=== PATIENT | female | born 1995 | race Caucasian/White ===

== ENCOUNTER 2020-03-04 08:58 | Emergency (ER) | payer OTHER, MEDICAID, SELFPAY ==
--- NOTE | 2020-03-04 09:04 | ED.URI ---
HPI - URI/Sore Throat General Chief Complaint: Upper Respiratory Infection Stated Complaint: cough sob achy Time Seen by Provider: 03/04/20 09:13 Source: patient and RN notes reviewed Mode of arrival: ambulatory Limitations: no limitations History of Present Illness HPI Narrative: 25-year-old female presents with concern for cough. Reports a history of asthma, reports cough has been worsening over the last 2 days. Reports that she is used her controller medicine daily, and has used her albuterol rescue inhaler 3 times today. She reports body aches, fatigue. Denies fever. Denies taking any other vmjq-ive-lhoijsy medications. 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 Reports she has a nebulizer, has not used it. MD elicited complaint: cough Related Data Home Medications Medication Instructions Recorded Confirmed albuterol sulfate [ProAir HFA] 2 puff INHALATION QID PRN 03/04/20 03/04/20 budesonide-formoterol [Symbicort] 2 puff INHALATION Q12H 03/04/20 03/04/20 Allergies Allergy/AdvReac Type Severity Reaction Status Date / Time No Known Allergies Allergy Verified 03/04/20 09:19 Review of Systems Review of Systems: Narrative: CONSTITUTIONAL: Reports malaise. Denies chills, sweats, or fever. EYES: Denies visual changes, redness, or discharge. ENT: Reports rhinorrhea, congestion. Denies sinus pain, otalgia and sore throat. CARDIOVASCULAR: Denies chest pain, palpitations, or edema. RESPIRATORY: Reports cough, dyspnea. GASTROINTESTINAL: Denies abdominal pain, nausea, vomiting, diarrhea SKIN: Denies rash or itching. MUSCULOSKELETAL: Reports myalgia. NEUROLOGIC: Denies headache. All systems reviewed & are unremarkable except as noted in HPI and below PMFSH Family History Family History (Updated 04/17/14 @ 07:13 by DOCTOR UNKNOWN) Father Family history of hepatitis Mother Family history of hepatitis Social History Social History Alcohol intake: never Comments At time of signature, agree with nursing past medical, surgical, social and family history. There is no relevant family history pertinent to the presenting complaint Exam Narrative: Exam Narrative: GENERAL: Well-appearing, well-nourished, and in no acute distress. HEAD: Normocephalic EYES: PERRLA, conjunctivae clear ENT: Nares clear, turbinates edematous and erythematous, clear discharge. Mucous membranes moist. TM pearly rosas with dull light reflex bilaterally; no tragal tenderness. Oropharynx not erythematous without lesions. Tonsils not enlarged and without exudate, no drooling, no hoarseness, no trismus, uvula midline. NECK: Supple. No lymphadenopathy CHEST: Clear to auscultation, breath sounds equal.. Scattered inspiratory wheeze, no rhonchi, rales, or stridor. No respiratory distress, speaks in full sentences. HEART: Regular rate and rhythm. No murmur heard. SKIN: Warm, dry, no rash. NEURO: Alert and oriented x3. PSYCH: Normal mood and affect Course Course Emergency Course: Patient is aware of diagnosis, understands and agrees to treatment plan. Anticipatory guidance given. Patient agrees to follow-up as directed and is aware of reasons to seek care at the emergency department. Portions of this record may have been created with voice recognition software Vital Signs Vital signs: Vital Signs Temperature 98.8 F 03/04/20 09:07 Pulse Rate 87 03/04/20 09:07 Respiratory Rate 16 03/04/20 09:07 Blood Pressure 129/91 H 03/04/20 09:07 Pulse Oximetry 100 03/04/20 09:07 Temperature 98.8 F 03/04/20 09:07 Pulse Rate 87 03/04/20 09:07 Respiratory Rate 16 03/04/20 09:07 Blood Pressure 129/91 H 03/04/20 09:07 Pulse Oximetry 100 03/04/20 09:07 Reviewed. Patient has been instructed to follow up with her primary care provider within the next week regarding her elevated blood pressure today. MDM - URI/Sore Throat MDM Narrative Medical decision making narrative: Differential diagnosis considered: Strep pharyng
[2020-03-04 09:07] VITALS: BP 129/91; PULSE 87; RESP 16; TEMP 37.1; O2SAT 100
== END 2020-03-04 09:30 | disposition home or self-care (01) ==
PROVIDERS: Emergency Provider Nurse Practitioner
DX: J45.41 Moderate persistent asthma with (acute) exacerbation (principal); Z20.828 Contact with and (suspected) exposure to other viral communicable diseases
CPT/HCPCS: 99213; G0463

== ENCOUNTER 2020-06-01 14:15 | Emergency (ER) | payer OTHER, MEDICAID, SELFPAY ==
--- NOTE | ~2020-06-01 | XR_ITS ---
EXAMINATION: XR finger 2nd RT min 2V DATE: 06/01/2020 14:40 INDICATION: Pain at the right second middle phalanx post injury. TECHNIQUE: Dorsal palmar, lateral and 2 oblique views of the right second digit were obtained COMPARISON: None FINDINGS: Mildly comminuted extra articular fracture of the mid to distal right second middle phalanx. There is 1 mm ulnar displacement of the fragment distal to an oblique fracture plane which extends to near th e rim of the distal articular surface. <1 mm radial displacement of a second smaller fragment at the radial side of the neck of the middle phalanx. No other fractures identified. Joint spaces are normal . IMPRESSION: 1. Minimally displaced mildly comminuted extra articular fracture of the right second middle phalanx. Reviewed, dictated and finalized at location B.
[2020-06-01 14:23] VITALS: BP 140/68; PULSE 88; RESP 14; TEMP 36.7; O2SAT 100
--- NOTE | 2020-06-01 14:23 | ED.GENADULT ---
HPI - General Adult General Chief complaint: Extremity Injury, Upper Stated complaint: right pointer finger Time Seen by Provider: 06/01/20 14:24 Source: patient Mode of arrival: ambulatory Limitations: no limitations History of Present Illness HPI narrative: 25-year-old female patient presents to the [facility] with complaints of right index finger pain for the past week and a half. Patient states that she did have a fall about 1-1/2 weeks ago however she does not exactly remember how she injured her finger. Patient states that she did have some alcoholic Tylenol. Patient states that she thought she just jammed the finger and has been taking Aleve as well as using a brace to the right index finger. Patient states that now she is having some numbness to the tip of the finger as well as pain and states that she cannot bend the finger all the way. Patient states that she is right-hand dominant. Related Data Home Medications Medication Instructions Recorded Confirmed albuterol sulfate [ProAir HFA] 2 puff INHALATION QID PRN 03/04/20 03/04/20 Allergies Allergy/AdvReac Type Severity Reaction Status Date / Time No Known Allergies Allergy Verified 06/01/20 14:32 Review of Systems Review of Systems: Narrative: CONSTITUTIONAL: Denies fever, chills, or sweats. EYES: Denies visual changes, redness, or discharge. ENT: Denies rhinorrhea, congestion, sore throat, or otalgia. CARDIOVASCULAR: Denies chest pain, palpitations, or edema. RESPIRATORY: Denies cough or dyspnea. GASTROINTESTINAL: Denies abdominal pain, nausea, vomiting, or diarrhea. GENITOURINARY: Denies dysuria or hematuria. SKIN: Denies rash or itching. MUSCULOSKELETAL: Denies back pain, joint pain, or myalgia. Positive right index finger pain from a fall about 1/2 weeks ago NEUROLOGIC: Denies headache, numbness, or weakness. PSYCHIATRIC: Denies anxiety or depression. [facility] Past Medical History Medical History (Updated 06/01/20 @ 14:25 by CARINE Hillman) Asthma Family History Family History Father Family history of hepatitis Mother Family history of hepatitis Social History Social History Alcohol intake: never Comments At the time of my signature I agree with nursing past medical history, surgical, social, and family history. There is no relevant family history pertinent to the presenting complaint. Exam Narrative: Exam Narrative: GENERAL: Well-appearing, well-nourished, and in no acute distress. HEAD: Normocephalic, atraumatic. EYES: PERRLA and EOMI. ENT: Nares clear, no rhinorrhea or epistaxis. Mucous membranes moist. NECK: Supple. No lymphadenopathy CHEST: Clear to auscultation. No respiratory distress. HEART: Regular rate and rhythm. No murmur heard. Normal peripheral pulses. ABDOMEN: Soft, nontender, nondistended, normal active bowel sounds. EXTREMITIES: The R hand is without obvious asymmetry or deformity when compared to the L hand. Patient does have swelling to the right index finger from the PIP joint up to the DIP joint with tenderness to the area. Patient unable to bend the PIP and DIP joints with active range of motion. No open wounds, nail avulsion, tissue avulsion, partial or complete amputation, subungual hematoma, bony deformity. Patient has sensation to the distal tip of the right index finger but does complain of some numbness. Pulses and cap refill. SKIN: Warm, dry, no rash. NEURO: No focal deficits. Alert and oriented x3. Course Reevaluation(s) Reevaluation #1: Reevaluated patient after her x-rays had resulted. Discussed with patient that her x-ray does show a fracture to the distal end of the right finger. Discussed with patient that I did call the plastic surgeon that is on-call today Dr. clifford and made an appointment for her for follow-up on Monday. Discussed with patient she should continue wearing her spl
--- NOTE | 2020-06-01 14:42 | PC.NURSE ---
PT DECLINES ICE FOR COMFORT
== END 2020-06-01 14:55 | disposition home or self-care (01) ==
PROVIDERS: Emergency Provider Nurse Practitioner Family
DX: S62.660A Nondisplaced fracture of distal phalanx of right index finger, initial encounter for closed fracture (principal); W19.XXXA Unspecified fall, initial encounter; J45.909 Unspecified asthma, uncomplicated
CPT/HCPCS: 73140; 99213; G0463

== ENCOUNTER 2020-06-19 07:47 | Outpatient (CLI) | payer MEDICAID, SELFPAY ==
--- NOTE | ~2020-06-19 | XR_ITS ---
XR finger 2nd RT min 2V DATE: 06/19/2020 08:09 INDICATION: Fall. Injury 1.5 weeks ago. Middle phalanx pain. TECHNIQUE: 3 views COMPARISON: 06/01/2020 right second FINDINGS: There is a comminuted fracture of the mid to distal shaft and neck, extending into the late ral aspect of the head of the proximal phalanx. There is mild spreading medially and laterally of the fracture fragments but otherwise no significant displacement regulation. There is no significant alisson nge in position or alignment compared to 06/01/2020. I periosteal reaction is noted consistent with healing. IMPRESSION: Comminuted fracture of middle phalanx, no significant change in position or alignment sin ce 06/01/2020 Reviewed, dictated and finalized at location A. IMPRESSION: Comminuted fracture of middle phalanx, no significant change in pos ition or alignment since 06/01/2020
== END 2020-06-19 07:48 | disposition home or self-care (01) ==
PROVIDERS: Visit Provider Plastic Surgery
DX: S62.620A Displaced fracture of middle phalanx of right index finger, initial encounter for closed fracture (principal); X58.XXXA Exposure to other specified factors, initial encounter
CPT/HCPCS: 73140